=== PATIENT | female | born 1940 | race Caucasian/White ===

== ENCOUNTER 2017-07-05 18:11 | Inpatient (IN) | payer OTHER ==
[~2017-07-05] VITALS: Ht 152.4 cm; Wt 54.5 kg
--- NOTE | ~2017-07-05 | 2DMMODE ---
[facility] [address] [place] [address] 2 D/M-MODE ECHOCARDIOGRAM Name: KASIA ARRIAGA Room #: 207-P ADM IN .R.#: [id number] Admission: 07/05/17 Attend Phys: Marely Enrique Discharge: Date of : 42 Date of Service: 07/06/17 1421 Report #: [id number] THIS REPORT FOR: //name// APPROVED REPORT Study performed: 07/06/2017 12:00:28 EXAM: Comprehensive 2D, Doppler, and color-flow Echocardiogram Patient Location: Bedside Room #: 207 Status: on-call BSA: 1.50 HR: 59 bpm BP: 136/84 mmHg Other Information Study Quality: Good Indications COPD CAD Hypertension/HDD 2D Dimensions RVDd: 31.83 mm LVEF(%): 64.25 (>50%) IVSd: 9.39 (7-11mm) LVOT Diam: 19.29 (18-24mm) LVDd: 44.94 mm PWd: 9.13 (7-11mm) Ascending Ao: 30.12 (22-36mm) LVDs: 29.27 (25-40mm) Aortic Root: 29.05 mm IVC: 10.00 mm Campos's LVEF: 64.25 % Volumes Left Atrial Volume (Systole) Single Plane 4CH: 28.07 mL Single Plane 2CH: 26.52 mL LA ESV Index: 21.00 mL/m2 Aortic Valve AoV Peak León.: 1.12 m/s AO Peak Gr.: 5.02 mmHg LVOT Max P.72 mmHg LVOT Max V: 0.96 m/s VAL Vmax: 2.51 cm2 Mitral Valve E/A Ratio: 1.2 [facility] [email or web address] [address] 2 D/M-MODE ECHOCARDIOGRAM Name: CORINA,KASIA Isiah Room #: 207-P [facility] IN [facility].#: [id number] Admission: 07/05/17 Attend Phys: Marely Enrique Discharge: Date of : 42 Date of Service: 07/06/17 1421 Report #: [id number] MV Decel. Time: 204.90 ms MV E Max León.: 0.88 m/s MV A León.: 0.76 m/s MV PHT: 59.42 ms IVRT: 69.20 ms Pulmonary Valve PV Peak León.: 0.65 m/s PV Peak Gr.: 1.72 mmHg Pulmonary Vein P Vein S: 0.34 m/s P Vein A: 0.26 m/s P Vein D: 0.25 m/s P Vein A Dur.: 115.3 msec P Vein S/D Ratio: 1.36 Left Ventricle The left ventricle is normal size. There is normal left ventricular wall thickness. The left ventricular systolic function is normal. The left ventricular ejection fraction is within the normal range. LVEF is 55-60%. The left ventricular diastolic function is normal. Right Ventricle The right ventricle is normal size. The right ventricular systolic function is normal. Atria The left atrium size is normal. The right atrium size is normal. Aortic Valve The aortic valve is normal in structure. No aortic regurgitation is present. There is no aortic valvular stenosis. Mitral Valve The mitral valve is normal in structure. Trace mitral regurgitation. No evidence of mitral valve stenosis. Tricuspid Valve The tricuspid valve is normal in structure. There is no tricuspid valve regurgitation noted. Pulmonic Valve The pulmonary valve is normal in structure. There is no pulmonic valvular regurgitation. Great Vessels The aortic root is normal in size. IVC is normal in size and [facility] [address] [place] [address] 2 D/M-MODE ECHOCARDIOGRAM Name: CORINAKASIA Room #: 207-P [facility] IN ..#: [id number] Admission: 07/05/17 Attend Phys: Marely Enrique Discharge: Date of : 42 Date of Service: 07/06/17 1421 Report #: [id number] collapses >50% with inspiration. Pericardium No pericardial effusion. <Conclusion> The left ventricle is normal size. LVEF is 55-60%. The aortic valve is normal in structure. The mitral valve is normal in structure. Trace mitral regurgitation. The tricuspid valve is normal in structure. The pulmonary valve is normal in structure. No pericardial effusion. <ELECTRONICALLY SIGNED> By: Javid Begum MD 07/06/17 142 [id number] 142 Javid Begum MD /INF
--- NOTE | ~2017-07-05 | H ---
[facility] [place] [address] HISTORY AND PHYSICAL Name: KASIA ARRIAGA Room #: 207-P ADM IN M.R.#: [id number] Admission: 07/05/17 Attend Phys: aMrely Sanchez Discharge: Date of : 42 Report #: [id number] THIS REPORT FOR: //name// CC: FAM physician/PCP Marely Sanchez DATE OF SERVICE: 07/05/2017 ATTENDING PHYSICIAN: Dr. Sanchez. PRIMARY CARE PHYSICIAN: Unknown. PRIMARY INVENTORY SPECIALIST: Dr. Brooks. CHIEF COMPLAINT: Right-sided chest pain. HISTORY OF PRESENT ILLNESS: The patient is a 77-year-old female who initially presented to [facility] ER with complaints of right-sided chest pain. She states the pain actually started this morning and woke her from her sleep. She said it was sharp and did radiate across her mid chest. She continued to have some intermittent pain throughout the day and told her family about it, who made her go to the ER. In the ER at [facility], her pain was reproducible. She was given aspirin and nitro paste. She denies any associated shortness of air, nausea, vomiting or diaphoresis. She does have a history of coronary artery disease. She was actually seen here at [facility] in 2004 with an HI and had 2 stents placed. She follows with Dr. Brooks. She denies any recent cardiac testing. She does take Plavix daily. She was transferred here because her troponin was mildly elevated and she will require further cardiac evaluation. She denies any current chest pain and is currently resting comfortably. PAST MEDICAL HISTORY: Coronary artery disease, hypertension, hyperlipidemia, arthritis, COPD, GERD, anxiety. PAST SURGICAL HISTORY: Coronary stent x 2 in 2004, appendectomy, cholecystectomy, bilateral tubal ligation. ALLERGIES: MORPHINE causes VOMITING. HOME MEDICATIONS: Zyrtec 10 mg p.o. daily, albuterol inhaler p.r.n. and albuterol nebulizer t.i.d. p.r.n., Plavix 75 mg p.o. daily, Crestor 40 mg p.o. daily, fish oil 1000 mg daily, nitroglycerin p.r.n., Coreg 12.5 mg b.i.d., benazepril 20 mg p.o. daily, aspirin 81 mg p.o. daily, Mobic 15 mg p.o. daily, Leakey 1 tab b.i.d. p.r.n. pain, Neurontin 400 mg p.o. t.i.d., amitriptyline 50 mg at bedtime, Celexa 20 mg p.o. daily, Ativan 1 mg b.i.d. p.r.n., Restoril 7.5 mg at bedtime, Symbicort 2 puffs b.i.d., ranitidine 150 mg b.i.d., Prilosec [address] [address] HISTORY AND PHYSICAL Name: KASIA ARRIAGA Isiah Room #: 207-P [facility] IN ..#: [id number] Admission: 07/05/17 Attend Phys: Marely Sanchez Discharge: Date of : 42 Report #: [id number] mg b.i.d. and multivitamin 1 cap daily. SOCIAL HISTORY: The patient does continue to smoke. She currently smokes a half pack per day, but previously had smoked up to 1-1/2 packs per day. She has been smoking for 60 years. She denies any alcohol or drug use. She lives at home with her 2 grandchildren. FAMILY HISTORY: Significant for heart disease. Her father from an HI at the age of 53. She also had 2 brothers who had heart disease with heart attack. Her mother had COPD. All her sisters have had cancer, 1 sister had thyroid cancer and diabetes. Another sister had stomach cancer and another sister had, she thinks, brain cancer and all are . REVIEW OF SYSTEMS: The patient does have underlying COPD. She says this is well controlled. Denies any need for oxygen at home. She uses breathing treatments as needed. Denies any significant cough or congestion. She does have some chronic dyspnea on exertion, which she says is mild. She does continue to smoke. All other 12-point review of systems was reviewed with the patient and otherwise negative unless stated in the HPI. PHYSICAL EXAMINATION: GENERAL: The patient is an alert female in no acute distress. VITAL SIGNS: Temperature is 36.6, heart rate 62, respirations 18, blood pressure 151/94, oxygen 97% on room air. HEENT: PERRLA. Sclerae are nonicteric. Oral mucosa is pink and moist. NECK: Supple, no JVD noted. CARDIAC: Normal S1, S2. No murmurs, rubs or gallops. RESPIRATORY: Breath sounds are clear bilaterally. No wheezing or rhonchi. She is diminished in both bases. She does have some reproducible anterior chest wall pain in her mid sternum. ABDOMEN: Soft, nontender, nondistended with positive bowel sounds. VASCULAR: No edema noted. Pedal pulses are 2+. NEUROLOGIC: The patient is alert and oriented x 3. Speech is clear. She is moving all extremities equally. No focal neuro deficits noted. LABORATORIES AND DIAGNOSTICS: Blood work done at [facility] showed a WBC of 6.17, hemoglobin 15, platelets 156. Sodium 142, potassium 3.6, BUN 13, creatinine 0.8, glucose 139. LFTs were within normal limits. Lipase 138. Troponin is 0.11. BNP 121 and CK was 33. EKG showed no ischemic changes. ASSESSMENT AND PLAN: 1. Chest pain with non-ST elevation myocardial infarction. The patient was sent here for further cardiac evaluation. We will check serial cardiac enzymes. She now is chest pain free. Repeat EKG did not show any ischemic changes. Continue to monitor on telemetry. Cardiology is consulted due to her significant history of prior stents. Continue aspirin and Plavix. [facility] [address] [place] [address] HISTORY AND PHYSICAL Name: CORINAKASIA ANGUIANO Room #: 207-P [facility] IN ..#: [id number] Admission: 07/05/17 Attend Phys: Marely Sanchez Discharge: Date of : 42 Report #: [id number] 2. Hypertension. Blood pressure is stable, continue home medications and monitor. 3. Hyperlipidemia. Continue statin therapy and check a lipid panel. 4. Chronic obstructive pulmonary disease with ongoing tobacco abuse. The patient has been advised to quit. No signs of chronic obstructive pulmonary disease exacerbation. Continue breathing treatments p.r.n. 5. Anxiety, this is stable. Continue lorazepam p.r.n. as at home. 6. Gastroesophageal reflux disease. Continue home medications. 7. Deep venous thrombosis prophylaxis. Place sequential compression devices. We will continue to follow the patient closely throughout the hospitalization and make changes based on clinical status. <ELECTRONICALLY SIGNED> By: JUANITA Salcedo 07/06/17 1017 [id number] [id number] JUANITA Salcedo /nt
--- NOTE | ~2017-07-05 | EKG ---
[place] [address] [facility] [place] [address] ELECTROCARDIOGRAM REPORT Name: KASIA ARRIAGA Room #: 207-[facility] IN M.R.#: [id number] Admission: 07/05/17 Attend Phys: Marely Sanchez Discharge: 07/06/17 Date of : 42 Report #: [id number] THIS REPORT FOR: //name// [facility] Test Date: 2017-07-05 Test Time: 22:15:40 Pat Name: KASIA ARRIAGA Department: Room: 207 Gender: F Ranch Supervisor: QUETA : 1940 Requested By: Eliza Moffett Order Number: [id number] MD: Amilcar Brooks Measurements Intervals [place] Rate: 62 P: 60 [place]: 179 QRS: -27 QRSD: 84 T: 46 QT: 449 QTc: 456 Interpretive Statements Sinus rhythm Borderline left axis deviation Borderline low voltage, extremity leads Early R-wave progression Compared to ECG 01/07/2005 06:26:53 Inferior Q waves are less prominent Electronically Signed On 07-07-2017 13:55:41 CDT by Amilcar Brooks [email or web address] <ELECTRONICALLY SIGNED> By: Amilcar Brooks MD, FACC 07/07/17 1355 2215 2215 Amilcar Brooks MD, [facility] /EPI
[2017-07-05 21:49] VITALS: BP 151/94
[2017-07-05] MEDS ORDERED: ALBUTEROL2.5 MG/31 INH (22:06)
[2017-07-05] MEDS ORDERED: ATIVAN0.5 MG PO (22:07)
[2017-07-05] MEDS ORDERED: ASPIRIN EC81 M1 PO (22:07)
[2017-07-05] MEDS ORDERED: AMITRIPTYLINE100 MG PO (22:07)
[2017-07-05] MEDS ORDERED: CARVEDILOL12.5 MG PO (22:10)
[2017-07-05] MEDS ORDERED: BENAZEPRIL HCL20 MG PO (22:10)
[2017-07-05] MEDS ORDERED: PLAVIX 75 MG TA75 M1 PO (22:11)
[2017-07-05] MEDS ORDERED: GABAPENTIN 100100 MG PO (22:11)
[2017-07-05] MEDS ORDERED: CELEXA20 MG PO (22:11)
[2017-07-05] MEDS ORDERED: HYDROCODONE-AP1 EAC6 PO (22:12)
[2017-07-05] MEDS ORDERED: CENTRUM SILVER1 EAC4 PO (22:12)
[2017-07-05] MEDS ORDERED: MOBIC15 MG PO (22:12)
[2017-07-05] MEDS ORDERED: OMEGA-31000 M1 PO (22:13)
[2017-07-05] MEDS ORDERED: NITROGLYCERIN0.4 MG SUBLING (22:13)
[2017-07-05] MEDS ORDERED: OMEPRAZOLE40 MG PO (22:14)
[2017-07-05] MEDS ORDERED: CRESTOR40 MG PO (22:15)
[2017-07-05] MEDS ORDERED: PROAIR RESPICL90 MCG INH (22:15)
[2017-07-05] MEDS ORDERED: ZANTAC 150MG T150 MG PO (22:15)
[2017-07-05] MEDS ORDERED: SYMBICORT160 MCG/4. INH (22:16)
[2017-07-05] MEDS ORDERED: ZYRTEC10 M4 PO (22:17)
[2017-07-05] MEDS ORDERED: RESTORIL7.5 MG PO (22:17)
[2017-07-06 00:02] VITALS: BP 107/68
[2017-07-06 04:10] LABS: CHOLESTEROL 145 mg/dL (<200); HDL CHOLESTEROL 35 mg/dL (>40); LDL CHOLESTEROL 86 mg/dL (<100); TC:HDL 4.1 Ratio (Not establshd); TRIGLYCERIDE 122 mg/dL (<150); TROPONIN-I 0.09 ng/mL (<0.06); VLDL 24 mg/dL (<40)
[2017-07-06 04:12] LABS: SERUM ASSESSMENT Clear
[2017-07-06 04:28] VITALS: BP 131/82
[2017-07-06 08:10] VITALS: BP 136/84
[2017-07-06 12:07] LABS: GLYCOHEMOGLOBIN (HGB A1C) 5.3 % (4.8-5.6)
[2017-07-06 14:47] VITALS: BP 128/80
[2017-07-06 17:34] VITALS: BP 129/81
[2017-07-06 18:13] VITALS: BP 129/81
== END 2017-07-06 19:15 | disposition home or self-care (01) | DRG 282 ==
LOC: 2N 18:11
PROVIDERS: Nurse Practitioner Acute Care
DX: I21.4 Non-ST elevation (NSTEMI) myocardial infarction (principal); I10 Essential (primary) hypertension; E78.5 Hyperlipidemia, unspecified; J44.9 Chronic obstructive pulmonary disease, unspecified; F41.9 Anxiety disorder, unspecified; F17.210 Nicotine dependence, cigarettes, uncomplicated; K21.9 Gastro-esophageal reflux disease without esophagitis; I25.10 Atherosclerotic heart disease of native coronary artery without angina pectoris; Z95.5 Presence of coronary angioplasty implant and graft; Z79.899 Other long term (current) drug therapy; Z88.6 Allergy status to analgesic agent; Z90.49 Acquired absence of other specified parts of digestive tract; Z79.82 Long term (current) use of aspirin; Z82.49 Family history of ischemic heart disease and other diseases of the circulatory system
CPT/HCPCS: 10081